=== PATIENT | female | born 1970 | race Caucasian/White ===

== ENCOUNTER 2016-11-16 18:57 | Emergency (ER) | payer BC ==
[2016-11-16 19:03] VITALS: BP 121/56; PULSE 83; RESP 16; TEMP 98.9
--- NOTE | 2016-11-16 19:27 | ED ---
Lower Extremity Injury HPI - General Chief Complaint: Extremity Injury, Lower Stated Complaint: rt foot injury Time Seen by Provider: 11/16/16 19:19 Source: patient, RN notes reviewed Mode of arrival: wheelchair Limitations: no limitations - History of Present Illness Initial Comments: 46-year-old female presents to the emergency department with a chief complaint of right heel pain. Patient states she was outside wearing moccasins and she kicked a frozen log and now she has no pain. Patient just hurts to step on the heel better if she rests it. Patient states is no other injuries from the incident. Patient denies any knee or back pain. Patient states she was concerned due to the pain so she thought that she should be seen. Patient states she did take Motrin but it does not seem to be helping. Patient denies any recent fever, chills, shortness of breath, chest pain, back pain, abdominal pain, nausea vomiting, numbness or tingling, dysuria or hematuria, constipation or diarrhea, headaches or visual changes, or any other current symptoms. - Related Data Home Medications Medication Instructions Recorded Confirmed Ibuprofen [Motrin] 800 mg PO Q6H PRN 11/16/16 11/16/16 Lisdexamfetamine Dimesylate 20 mg PO QAM PRN 11/16/16 11/16/16 [Vyvanse] Loratadine [Claritin] 10 mg PO DAILY 11/16/16 11/16/16 valACYclovir [Valtrex] 500 mg PO DAILY PRN 11/16/16 11/16/16 Previous Rx's Medication Instructions Recorded Hydrocodone/Acetaminophen [[place] 1 each PO Q6HR PRN #20 tab 11/16/16 5-325] Allergies Allergy/AdvReac Type Severity Reaction Status Date / Time Penicillins Allergy Anaphylaxis Verified 11/16/16 19:37 Review of Systems ROS Statement: Those systems with pertinent positive or pertinent negative responses have been documented in the HPI. ROS Other: All systems not noted in ROS Statement are negative. Past Medical History Past Medical History: Thyroid Disorder History of Any Multi-Drug Resistant Organisms: None Reported Past Surgical History: Cholecystectomy Past Psychological History: No Psychological Hx Reported Smoking Status: Current every day smoker Past Alcohol Use History: Daily Past Drug Use History: None Reported General Exam - General Exam Comments Initial Comments: General: The patient is awake and alert, in no distress, and does not appear acutely ill. Neck: The neck is supple, there is no tenderness. Cardiovascular: There is a regular rate and rhythm. No murmur, rub or gallop is appreciated. Respiratory: Lungs are clear to auscultation, respirations are non-labored, breath sounds are equal. No wheezes, stridor, rales, or rhonchi. Musculoskeletal: Sensation intact with pupils pulses that the reduction. Following motion of right knee right ankle and right foot. Patient does appear to tenderness with palpation to the calcaneus. No tenderness. Rest of the foot or ankle. No inflammation no induration no trauma. Neurological: CN II-XII intact, There are no obvious motor or sensory deficits. Coordination appears grossly intact. Speech is normal. Skin: Skin is warm and dry and no rashes or lesions are noted. Psychiatric: Normal mood and affect. Limitations: no limitations Course Vital Signs 11/16/16 19:00 Temperature 98.9 F Pulse Rate 83 Respiratory 16 Rate Blood Pressure 121/56 O2 Sat by Pulse 97 Oximetry Procedures - Orthopedic Splinting/Casting Injury #1 Side: right Lower Extremity Injury Location: foot Lower Extremity Immobilizer: posterior splint (Short leg) Medical Decision Making - Medical Decision Making 46 yo male presents emergency Department chief complaint of right heel pain. This time patient will undergo an x-ray. Patient does appear to have a calcaneal spur fracture. She was given a prescription for pain medication we did put her in a splint on her request we discussed keeping the office for. We discussed follow-up and return parameters discussed all the patient's questions. She states she understood and all her questions have been answered. She will be discharged. - Radiology Data Radiology results: report reviewed, image reviewed Interpreted by me: Acute fracture through the patient's plantar calcaneal spur. xray right foot. Disposition Clinical Impression: Right calcaneal fracture Disposition: HOME SELF-CARE Condition: Stable Instructions: Foot Fracture in Adults (ED) Additional Instructions: Please use medication as discussed. Please follow up with family doctor if symptoms have not improved over the next two days. Please return to the emergency room if your symptoms increase or worsen or for any other concerns. Prescriptions: Hydrocodone/Acetaminophen [[place] 5-325] 1 each PO Q6HR PRN #20 tab PRN Reason: Pain Referrals: John Moy MD [Primary Care Provider] - 1-2 days Octavio Mane MD [STAFF PHYSICIAN] - 1-2 days Time of Disposition: 19:47
--- NOTE | 2016-11-16 19:43 | XR ---
EXAMINATION TYPE: XR foot complete RT DATE OF EXAM: 11/16/2016 7:37 PM COMPARISON: NONE HISTORY: 46-year-old female with pain after kicking injury. TECHNIQUE: 3 views FINDINGS: There is a transverse fracture through the base of the patient's moderate sized plantar calcaneal bon e spur. The fracture is nondisplaced and minimally displaced. No other additional acute fracture or d islocation seen. IMPRESSION: Acute fracture through the patient's plantar calcaneal spur.
== END 2016-11-16 20:25 | disposition home or self-care (01) ==
LOC: EC 18:57
DX: S92.001A Unspecified fracture of right calcaneus, initial encounter for closed fracture (principal); W22.8XXA Striking against or struck by other objects, initial encounter; F17.200 Nicotine dependence, unspecified, uncomplicated; Z79.899 Other long term (current) drug therapy; Z88.0 Allergy status to penicillin
CPT/HCPCS: 29515; 99283